=== PATIENT | female | born 1965 ===

== ENCOUNTER 2016-12-04 13:19 | Observation (INO) | payer OTHER ==
[2016-12-04 13:19] VITALS: BMI 28.5
[2016-12-04 13:55] VITALS: BP 111/63; PULSE 67; RESP 16; TEMP 98; O2SAT 98
[2016-12-04 15:19] LABS: BASO # 0.1 K/uL (0.0-0.2); EOS # 0.1 K/uL (0.0-0.7); EOS % 2.1 % (0.0-4.0); HEMATOCRIT 38.5 % (34.0-47.0); LYMPH # 2.2 K/uL (1.0-4.3); LYMPH % 40.1 % (20.0-40.0); MEAN CELL VOLUME 93.8 fl (81.0-99.0); MEAN CORPUSCULAR HEMOGLOBIN 31.2 pg (27.0-31.0); MEAN CORPUSCULAR HGB CONC 33.3 g/dL (33.0-37.0); MEAN PLATELET VOLUME 8.8 fl (7.2-11.7); MONO # 0.7 K/uL (0.0-0.8); MONO % 11.8 % (0.0-10.0); NEUT # 2.5 K/uL (1.8-7.0); NRBC % 0.2 % (0.0-0.0); RED CELL DISTRIBUTION WIDTH 13.6 % (11.5-14.5); WHITE BLOOD COUNT 5.6 K/uL (4.8-10.8)
[2016-12-04 15:25] LABS: BLOOD UREA NITROGEN 14 mg/dl (7-17); GLUCOSE,RANDOM 94 mg/dL (65-105)
[2016-12-04 15:26] LABS: ALB/GLOB RATIO 1.4 (1.0-2.1); ALKALINE PHOSPHATASE 54 U/L (38-126); ALT/SGPT 34 U/L (9-52); AST/SGOT 26 U/L (14-36); BILIRUBIN,TOTAL 0.3 mg/dl (0.2-1.3); CALCIUM 9.5 mg/dL (8.4-10.2); CARBON DIOXIDE 23 mmol/L (22-30); CHLORIDE 105 mmol/L (98-107); GFR AFRICAN-AMERICAN > 60; SODIUM 142 mmol/l (132-148); TOTAL PROTEIN 7.4 G/DL (6.3-8.2)
[2016-12-04 15:38] LABS: RBC URINE 3 /hpf (0-3); URINE BILIRUBIN NEGATIVE (NEGATIVE); URINE BLOOD NEGATIVE (NEGATIVE); URINE COLOR YELLOW (YELLOW); URINE GLUCOSE (UA) NEG (Normal); URINE KETONE NEGATIVE (NEGATIVE); URINE LEUKOCYTE ESTERASE NEG Leu/uL (Negative); URINE PROTEIN NEGATIVE (NEGATIVE); URINE UROBILINOGEN 0.2-1.0 mg/dL (0.2-1.0); WBC URINE < 1 /hpf (0-5)
[2016-12-04] MEDS ORDERED: Iohexol 300 100 ML IJ ONE (17:37)
[2016-12-04] MEDS ORDERED: Sodium Chloride 0.9% 50 ML IV ONE (17:37)
--- NOTE | 2016-12-04 18:15 | CT ---
PROCEDURE: CT Abdomen and Pelvis with contrast HISTORY: evaluate for diverticulitis COMPARISON: Comparison is made to the previous study dated 05/22/2015 TECHNIQUE: Contrast dose: 95 mL Omnipaque 300 Axial and reformatted coronal and sagittal CT images of the abdomen and pelvis were obtained after IV contrast administration. Radiation dose: Total exam DLP = 801.45 mGy-cm. This CT exam was performed using one or more of the following dose reduction techniques: Automated exposure control, adjustment of the mA and/or kV according to patient size, and/or use of iterative reconstruction technique. FINDINGS: LOWER THORAX: 5 millimeter calcified nodule at the right lower lobe likely represent calcified granuloma. No evidence of pneumonia or pleural effusion. LIVER: Mild hepatomegaly is again noted. No gross enhancing mass lesion or intrahepatic biliary ductal dilatation noted. The portal vein is patent. GALLBLADDER AND BILE DUCTS: Unremarkable. PANCREAS: Unremarkable. No gross lesion or ductal dilatation. SPLEEN: Unremarkable. ADRENALS: Unremarkable. No mass. KIDNEYS AND URETERS: Unremarkable. No hydronephrosis. No solid mass. VASCULATURE: Unremarkable. No aortic aneurysm. BOWEL: Few scattered colonic diverticulosis are noted. No definite evidence of acute diverticulitis. Questionable mild stranding surrounding the proximal sigmoid colon at the left lower abdomen. No evidence of high-grade bowel obstruction. APPENDIX: Normal appendix. PERITONEUM: Unremarkable. No free fluid. No free air. LYMPH NODES: Unremarkable. No enlarged lymph nodes. BLADDER: Unremarkable. REPRODUCTIVE: The uterus is mildly enlarged heterogeneous contains multiple fibroids. BONES: No acute fracture. OTHER FINDINGS: None. IMPRESSION: Questionable mild stranding surrounding the proximal sigmoid colon. Otherwise no evidence of acute pathology at the GI system. Mildly enlarged uterus contains soft tissue enhancing lesions likely represent fibroids. Mild hepatomegaly.
--- NOTE | 2016-12-04 18:42 | ED PDOC ---
HPI: General Adult Time Seen by Provider: 12/04/16 14:20 Chief Complaint (Nursing): Female Genitourinary Chief Complaint (Provider): ABDOMINAL PAIN History Per: Patient (51 Y/O FEMALE H/O FIBROIDS NOTES WORSENING LOWER ABDOMINAL PAIN X FEW DAYS. LAST MENSES 4 MONTHS AGO. DENIES ANY DYSURIA/ URINARY FREQUENCY/FEVERS/CHILL. DENIES ANY DIARRHEA. PATIENT HAS BEEN UNABLE TO OBTAIN F/U REGARDING FIBROIDS.) Past Medical History Reviewed: Historical Data, Nursing Documentation, Vital Signs Vital Signs: Last Vital Signs Temp 98.0 F 12/04/16 13:52 Pulse 67 12/04/16 13:52 Resp 16 12/04/16 13:52 BP 111/63 12/04/16 13:52 Pulse Ox 98 12/04/16 13:52 - Surgical History Surgical History: - Family History Family History: States: Unknown Family Hx - Home Medications Home Medications: Ambulatory Orders Medication Instructions Recorded Naproxen 500 mg PO BID PRN #20 tab 05/22/15 Ibuprofen [Motrin] 1 tab PO Q8 PRN #21 tab 06/05/15 Promethazine/Codeine 5 ml PO Q12 PRN #100 ml 06/05/15 [Codeine/Promethazine 10 MG/5 Ml-6.25 MG/5 Ml] Pseudoephedrine [Sudafed Tab] 1 tab PO Q6 PRN #24 tab 06/05/15 Cyclobenzaprine [Cyclobenzaprine 10 mg PO BID #14 tab 01/31/16 HCl] Ibuprofen [Motrin] 400 mg PO Q6 #30 tab 01/31/16 Ciprofloxacin [Cipro] 500 mg PO BID #14 tab 12/04/16 Metronidazole [Flagyl] 500 mg PO QID #28 tablet 12/04/16 - Allergies Allergies/Adverse Reactions: Allergies Allergy/AdvReac Type Severity Reaction Status Date / Time No Known Allergies Allergy Verified 12/04/16 13:52 Review of Systems ROS Statement: Except As Marked, All Systems Reviewed And Found Negative Genitourinary Female: Positive for: Pelvic Pain Physical Exam - Reviewed Nursing Documentation Reviewed: Yes Vital Signs Reviewed: Yes - Physical Exam Appears: Positive for: Well, Non-toxic, No Acute Distress Head Exam: Positive for: ATRAUMATIC, NORMAL INSPECTION, NORMOCEPHALIC Skin: Positive for: Normal Color, Warm, DRY Eye Exam: Positive for: EOMI, Normal appearance, PERRL ENT: Positive for: Normal ENT Inspection Neck: Positive for: Normal, Painless ROM Cardiovascular/Chest: Positive for: Regular Rate, Rhythm Respiratory: Positive for: CNT, Normal Breath Sounds Gastrointestinal/Abdominal: Positive for: Normal Exam, Bowel Sounds, Soft, Tenderness (LOWER ABDOMINAL TENDERNESS) Back: Positive for: Normal Inspection Extremity: Positive for: Normal ROM Neurologic/Psych: Positive for: Alert, Oriented - Laboratory Results Result Diagrams: 12/04/16 14:46 12/04/16 14:46 Urine POC: Negative - ECG O2 Sat by Pulse Oximetry: 98 ED OBSERVATION Date of observation admission: 12/04/16 Time of observation admission: 16:30 - Observation admission statement Patient is placed on observation because of need: for additional diagnostics to rule-out acute/life threatening conditio - Goals of Observation Goals of Observation: Improvement of pain - Progress Note Observation Progress Note: Patient is awake, vitals are stable, but symptoms persist Progress Note: 12/04/16 18:43 TORADOL 15 MG IV X [address] RESULTS REVIEWED: QUESTIONABLE MILD STRANDING SIGMOID COLON; MULTIPLE FIBROID NOTED; Disposition - Clinical Impression Clinical Impression: Fibroid, Colitis - Patient ED Disposition Is Patient to be Admitted: No - Disposition Disposition Time: 18:44 Condition: FAIR
== END 2016-12-04 19:25 | disposition home or self-care (01) ==
LOC: H.ER 13:19 → H.EROBSV 16:34
PROVIDERS: ADMIT Emergency Medicine; ATTEND Emergency Medicine
DX: K52.9 Noninfective gastroenteritis and colitis, unspecified (principal)
CPT/HCPCS: 74177; 80053; 81003; 81025; 85025; 87086; 96374; 99283; G0378; J1885; Q9967

== ENCOUNTER 2017-07-09 14:05 | Emergency (ER) | payer OTHER ==
[2017-07-09 14:05] VITALS: BMI 28.5
[2017-07-09 14:09] VITALS: RESP 18; O2SAT 99
--- NOTE | 2017-07-09 15:11 | ED PDOC ---
Lower Extremity Pain/Injury Time Seen by Provider: 07/09/17 14:12 Chief Complaint (Nursing): Lower Extremity Problem/Injury Chief Complaint (Provider): Left Lower Extremity Injury History Per: Patient History/Exam Limitations: no limitations Current Symptoms Are (Timing): Still Present Additional History Per: Family Additional Complaint(s): 51yo female, with history of arthritis, presents to ED with complaints of left leg injury and pain. Patient states she was at work and when she went to the basement to clean and a pole fell and struck the back of her left leg; she is currently reporting localized pain to her left lower thigh, knee, and lower leg. She states she fell due to the injury but denies any head injury or loss of consciousness. Patient states she did not take any medications prior to impact. She denies any weakness, numbness, tingling, and other injuries. She has no other medical complaints. PMD: [facility] LMP: 8 months ago, patient is perimenopausal - Knee Description Of Injury: Struck With Object - Ankle/Foot Description Of Injury: Struck With Object Past Medical History Reviewed: Historical Data, Nursing Documentation, Vital Signs Vital Signs: Last Vital Signs Temp 97.1 F L 07/09/17 14:06 Pulse 90 07/09/17 14:06 Resp 18 07/09/17 14:06 BP 130/71 07/09/17 14:06 Pulse Ox 99 07/09/17 14:06 - Medical History PMH: Arthritis - Surgical History Surgical History: - Family History Family History: States: No Known Family Hx, Unknown Family Hx - Social History Current smoker - smoking cessation education provided: No Alcohol: None Drugs: Denies - Home Medications Home Medications: Ambulatory Orders Medication Instructions Recorded Naproxen 500 mg PO BID PRN #20 tab 05/22/15 Ibuprofen [Motrin] 1 tab PO Q8 PRN #21 tab 06/05/15 Promethazine/Codeine 5 ml PO Q12 PRN #100 ml 06/05/15 [Codeine/Promethazine 10 MG/5 Ml-6.25 MG/5 Ml] Pseudoephedrine [Sudafed Tab] 1 tab PO Q6 PRN #24 tab 06/05/15 Cyclobenzaprine [Cyclobenzaprine 10 mg PO BID #14 tab 01/31/16 HCl] Ibuprofen [Motrin] 400 mg PO Q6 #30 tab 01/31/16 Ciprofloxacin [Cipro] 500 mg PO BID #14 tab 12/04/16 Metronidazole [Flagyl] 500 mg PO QID #28 tablet 12/04/16 Meloxicam [Mobic] 15 mg PO DAILY #14 tab 07/09/17 - Allergies Allergies/Adverse Reactions: Allergies Allergy/AdvReac Type Severity Reaction Status Date / Time No Known Allergies Allergy Verified 12/04/16 13:52 Review of Systems ROS Statement: Except As Marked, All Systems Reviewed And Found Negative Musculoskeletal: Positive for: Leg Pain (left distal thigh, knee and lower leg pain) Neurological: Negative for: Weakness, Numbness, Other (loss of consciousness) Physical Exam - Reviewed Nursing Documentation Reviewed: Yes Vital Signs Reviewed: Yes - Physical Exam Comments: GENERAL APPEARANCE: Patient is awake, alert, oriented x 3, in no acute distress. Resting comfortably in ED stretcher. SKIN: Warm, dry; (-) cyanosis. CHEST AND RESPIRATORY: (-) wheezing; (-) rales, (-) rhonchi, (-) rub; breath sounds equal bilaterally. Respirations even and nonlabored. Speaking in full sentences. HEART AND CARDIOVASCULAR: (-) irregularity; (-) murmur, (-) gallop. ABDOMEN AND GI: Soft; (-) tenderness (-) guarding (-) tenderness (-) ecchymosis. LOWER EXTREMITY: Small effusion noted to left knee. Tenderness to distal left thigh, diffusely to left knee, and proximal left lower leg (-) skin break (-) ecchymosis (-) gross deformity. Decreased ROM at left knee secondary to pain. Distal sensation intact. Capillary refill < 2 seconds. Ankle, toes with FROM (- ) tenderness. Pelvis nontender with no signs of instability. CARDIOVASCULAR: (+) distal pulse. NEUROLOGIC: (+) distal sensation. - ECG O2 Sat by Pulse Oximetry: 99 (RA) Pulse Ox Interpretation: Normal Medical Decision Making Medical Decision Making: Impression: Acute knee injury, contusion of leg Pln: -- Toradol 30mg IM -- Tramadol 100mg PO (Patient has a ride home with family members at bedside) -- XR Left knee -- XR Left tib/fib Time: 1610 PROCEDURE: Left Knee Radiographs. HISTORY: Pain. COMPARISON: None. FINDINGS: BONES: Normal. No fracture. JOINTS: Normal. No osteoarthritis. JOINT EFFUSION: None. OTHER FINDINGS: None. IMPRESSION: Normal radiographs of the left knee. Time: 1617 PROCEDURE: Radiographs of the left tibia and fibula. HISTORY: trauma COMPARISON: None available. TECHNIQUE: Frontal and lateral views obtained. FINDINGS: BONES: No fracture or destructive lesion. JOINT SPACES: Unremarkable. OTHER FINDINGS: None. IMPRESSION: Unremarkable radiographs of the left tibia and fibula. Time: 1623 On exam, patient remains AAOx3, in no acute distress with improvement of pain. On exam, neck is supple, lungs CTA, cardiac RRR, abdomen is soft and non-tender , neuro exam shows no focal findings. Ambulatory in ED with steady, unassisted gait. ANDREA wrap applied to lower extremity by Zachary BRAN. NV intact after placement. RICE encouraged. Diagnostic results d/w the patient in great detail. VSS, stable fro discharge. Patient advised to follow up with primary care physician in 1-2 days without fail. Advised to take medication as prescribed. Return to the emergency room at any time for any new or worsening symptoms. Patient states she fully agrees with and understands discharge instructions. States that she agrees with the plan and disposition. Verbalized and repeated discharge instructions and plan. I have given the patient opportunity to ask any additional questions. Scribe Attestation: Documented by Zunilda Watson acting as a scribe for ANGEL Paulino. Provider Attestation: All medical record entries made by the Scribe were at my direction and personally dictated by me. I have reviewed the chart and agree that the record accurately reflects my personal performance of the history, physical exam, medical decision making, and the department course for this patient. I have also personally directed, reviewed, and agree with the discharge instructions and disposition. Disposition - Clinical Impression Clinical Impression: Contusion of lower leg, Knee pain, acute - Patient ED Disposition Is Patient to be Admitted: No Counseled Patient/Family Regarding: Studies Performed, Diagnosis, Need For Followup, Rx Given - Disposition Referrals: [facility] [Outside] Disposition: Routine/Home Disposition Time: 16:28 Condition: STABLE Additional Instructions: REST ICE COMPRESS (BANDAGE) ELEVATE Prescriptions: Meloxicam [Mobic] 15 mg PO DAILY #14 tab Instructions: Contusion (DC), Knee Pain (DC) Forms: Asterisk (Palestinian), [facility] ED School/Work Excuse Print Language: KINYARWANDA - POA Present On Arrival: Falls Or Trauma
--- NOTE | 2017-07-09 16:02 | RAD ---
PROCEDURE: Left Knee Radiographs. HISTORY: Pain. COMPARISON: None. FINDINGS: BONES: Normal. No fracture. JOINTS: Normal. No osteoarthritis. JOINT EFFUSION: None. OTHER FINDINGS: None. IMPRESSION: Normal radiographs of the left knee.
--- NOTE | 2017-07-09 16:19 | RAD ---
PROCEDURE: Radiographs of the left tibia and fibula. HISTORY: trauma COMPARISON: None available. TECHNIQUE: Frontal and lateral views obtained. FINDINGS: BONES: No fracture or destructive lesion. JOINT SPACES: Unremarkable. OTHER FINDINGS: None. IMPRESSION: Unremarkable radiographs of the left tibia and fibula.
[2017-07-09 16:57] VITALS: BP 130/72; PULSE 78; TEMP 98
== END 2017-07-09 16:57 | disposition home or self-care (01) ==
LOC: H.ER 14:05
DX: S80.12XA Contusion of left lower leg, initial encounter (principal); M25.562 Pain in left knee; W22.8XXA Striking against or struck by other objects, initial encounter; Y99.0 Civilian activity done for income or pay
CPT/HCPCS: 73562; 73590; 96372; 99283; J1885